=== PATIENT | male | born 1980 | race Caucasian/White ===

== ENCOUNTER 2019-01-28 19:07 | Emergency (ER) | payer OTHER ==
[~2019-01-28] VITALS: Ht 170.2 cm; Wt 73.0 kg
[2019-01-28] MEDS ORDERED: KETOROLAC 60MG/2ML VIAL IM ONE (19:45)
[2019-01-28 21:36] VITALS: BP 138/76
== END 2019-01-28 21:37 | disposition home or self-care (01) ==
LOC: ER 19:07
DX: S43.101A Unspecified dislocation of right acromioclavicular joint, initial encounter (principal); S60.221A Contusion of right hand, initial encounter; V43.62XA Car passenger injured in collision with other type car in traffic accident, initial encounter; Y93.89 Activity, other specified; Y92.410 Unspecified street and highway as the place of occurrence of the external cause
CPT/HCPCS: 71045; 73030; 73130; 96372; 99283; J1885